=== PATIENT | male | born 1995 | race American Indian/Alaskan Native ===

== ENCOUNTER 2020-11-16 20:19 | Emergency (ER) | payer SELFPAY ==
[2020-11-16] MEDS ORDERED: IBUPROFEN 600 MG TAB PO ONE (21:00)
[2020-11-16] MEDS ORDERED: HYDROcodone/ACETAMINOPHEN 7.5-325MG TAB PO ONE (21:00)
[2020-11-16] MEDS ORDERED: ONDANSETRON 4 MG ODT TAB PO ONE (21:00)
--- NOTE | 2020-11-16 21:39 | XRay Report ---
EXAMINATION: Right ankle radiograph, 3 views, 11/16/2020 CLINICAL INFORMATION: Fall. Pain. COMPARISON: None. FINDINGS: There is no evidence of acute fracture or dislocation of the right ankle. No focal soft tis sophia swelling is identified. Signer Name: Samantha Merino MD Signed: 11/16/2020 9:35 PM Workstation Name: [id number]
--- NOTE | 2020-11-16 21:40 | XRay Report ---
EXAMINATION: Right foot radiograph, 3 views, 11/16/2020 CLINICAL INFORMATION: Right foot pain. Trauma. COMPARISON: None. FINDINGS: There is no evidence of acute fracture or focal soft tissue swelling of the right foot. Signer Name: Samantha Merino MD Signed: 11/16/2020 9:36 PM Workstation Name: [id number]
--- NOTE | 2020-11-16 23:02 | Emergency Department Report ---
ED Lower Extremity HPI - General Chief Complaint: Extremity Injury, Lower Stated Complaint: LEFT LEG PAIN/POSS BROKEN Source: patient Mode of arrival: Ambulatory Limitations: Physical Limitation - History of Present Illness Initial Comments: Patient is a 25-year-old -Citizen Of The [place] male with no past medical history presents to the ED with complaint of acute onset persistent severe right ankle and foot pain after he slipped and fell down while playing basketball about 6 hours ago. Patient states that the pain has been persistent and constant since the incident occurred and that he is unable to bear weight on the right foot because of severe pain. Patient denies head or neck injuries, dizziness, syncope, nausea, vomiting, chest pain, shortness of breath, back pain, hip pain, loss of consciousness, numbness and tingling or weakness of lower extremities bilaterally. MD Complaint: ankle injury (right ), foot injury (right) -: Sudden, hour(s) (6) Injury: Ankle: Right (pain), Foot: Right (pain) Type of Injury: blunt Place: home Severity: severe Severity scale (0 -10): 8 Worsens With: weight bearing, movement, palpation Context: fall, direct blow Associated Symptoms: snap/pop sensation, swelling, able to partially bear weight. denies: numbness, tingling, unable to bear weight - Related Data Previous Rx's Medication Instructions Recorded Last Taken Type Baclofen 20 mg PO Q8H PRN #15 tablet 11/16/20 Unknown Rx Ibuprofen [Motrin] 800 mg PO Q8HR PRN #30 tablet 11/16/20 Unknown Rx traMADoL [Ultram] 50 mg PO Q6HR PRN #10 tablet 11/16/20 Unknown Rx ED Review of Systems ROS: Stated complaint: LEFT LEG PAIN/POSS BROKEN Other details as noted in HPI Constitutional: denies: chills, fever Eyes: denies: eye pain, eye discharge, vision change ENT: denies: ear pain, throat pain Respiratory: denies: cough, shortness of breath, wheezing Cardiovascular: denies: chest pain, palpitations Endocrine: no symptoms reported Gastrointestinal: denies: abdominal pain, nausea, diarrhea Genitourinary: denies: urgency, dysuria Musculoskeletal: joint swelling (Right ankle mild swelling), arthralgia (Right ankle and foot pain). denies: back pain Skin: denies: rash, lesions Neurological: denies: headache, weakness, paresthesias Psychiatric: denies: anxiety, depression Hematological/Lymphatic: denies: easy bleeding, easy bruising ED Past Medical Hx - Social History Smoking Status: Never Smoker Substance Use Type: Alcohol, Marijuana - Medications Home Medications: Home Medications Medication Instructions Recorded Confirmed Last Taken Type Baclofen 20 mg PO Q8H PRN #15 tablet 11/16/20 Unknown Rx Ibuprofen [Motrin] 800 mg PO Q8HR PRN #30 tablet 11/16/20 Unknown Rx traMADoL [Ultram] 50 mg PO Q6HR PRN #10 tablet 11/16/20 Unknown Rx ED Physical Exam - General Limitations: Physical Limitation General appearance: alert, in no apparent distress - Head Head exam: Present: atraumatic, normocephalic, normal inspection - Eye Eye exam: Present: normal appearance, PERRL, EOMI Pupils: Present: normal accommodation - ENT ENT exam: Present: normal exam, normal orophraynx, mucous membranes moist, TM's normal bilaterally, normal external ear exam - Neck Neck exam: Present: normal inspection, full ROM - Respiratory Respiratory exam: Present: normal lung sounds bilaterally. Absent: respiratory distress, wheezes, chest wall tenderness, accessory muscle use, decreased breath sounds, prolonged expiratory - Cardiovascular Cardiovascular Exam: Present: regular rate, normal rhythm, normal heart sounds. Absent: systolic murmur, diastolic murmur, rubs, gallop - GI/Abdominal GI/Abdominal exam: Present: soft, normal bowel sounds. Absent: tenderness, guarding, rebound, hyperactive bowel sounds, hypoactive bowel sounds, organomegaly - Extremities Exam Extremities exam: Present: normal inspection, tenderness (Palpable severe right ankle and foot tenderness with mild swelling), normal capillary refill, joint swelling (Mild swelling of right foot and ankle). Absent: full ROM (Limited range of motion of right ankle and foot due to pain), calf tenderness - Back Exam Back exam: Present: normal inspection, full ROM. Absent: tenderness, CVA tenderness (R), CVA tenderness (L), muscle spasm, paraspinal tenderness, vertebral tenderness - Neurological Exam Neurological exam: Present: alert, oriented X3, CN II-XII intact, normal gait, reflexes normal - Psychiatric Psychiatric exam: Present: normal affect, normal mood - Skin Skin exam: Present: warm, dry, intact, normal color. Absent: rash ED Lower Extremity MDM - Radiology Data Radiology results: report reviewed, image reviewed Right ankle x-ray shows no acute fractures or subluxations. Right foot x-ray shows no acute fractures or subluxations - Medical Decision Making This is a 25-year-old -Citizen Of [place] male with no past medical history presents to the ED with complaint of acute onset persistent severe right ankle and foot pain after he slipped and fell down while playing basketball about 6 hours ago. Patient states that the pain has been persistent and constant since the incident occurred and that he is unable to bear weight on the right foot because of severe pain. In the ED, patient is alert and oriented x3 and is not in distress. Patient was treated for pain in the ED with pain medications. On reevaluation, patient's pain is well controlled medication. Right ankle x-ray shows no acute fractures or subluxation. Right foot x-ray also shows no acute fractures and subluxations. Patient was therefore discharged home on pain medications and advised to follow-up with his primary care physician in 5 to 7 days for reevaluation or return to the ED immediately if symptoms get worse. - Differential Diagnosis Ankle fracture; foot fracture; muscle strain; ankle sprain; Critical care attestation.: If time is entered above; I have spent that time in minutes in the direct care of this critically ill patient, excluding procedure time. ED Disposition Clinical Impression: Severe sprain of right ankle Qualifiers: Encounter type: initial encounter Qualified Code(s): S93.401A - Sprain of unspecified ligament of right ankle, initial encounter Sprain of right foot Qualifiers: Encounter type: initial encounter Qualified Code(s): S93.601A - Unspecified sprain of right foot, initial encounter Disposition: DC-01 TO HOME OR SELFCARE Is pt being admited?: No Does the pt Need Aspirin: No Condition: Stable Instructions: Ankle Sprain, [id number], Foot Sprain Additional Instructions: The right ankle and foot x-rays showed no acute fractures or subluxations. Your injuries are due to severe right ankle and foot sprain. Therefore take medication with food, drink plenty of fluids and follow-up with your primary care physician in 5 to 7 days for reevaluation. Return to the ED immediately if symptoms get worse. Prescriptions: Baclofen 20 mg PO Q8H PRN #15 tablet PRN Reason: Muscle Spasm Ibuprofen [Motrin] 800 mg PO Q8HR PRN #30 tablet PRN Reason: Pain , Severe (7-10) traMADoL [Ultram] 50 mg PO Q6HR PRN #10 tablet PRN Reason: Pain Referrals: [facility] [Provider Group] - 7-10 days Time of Disposition: 23:00 Print Language: WELSH
== END 2020-11-16 23:18 | disposition home or self-care (01) ==
LOC: ED 20:19
DX: S93.401A Sprain of unspecified ligament of right ankle, initial encounter (principal); S93.601A Unspecified sprain of right foot, initial encounter; F12.90 Cannabis use, unspecified, uncomplicated; Z79.899 Other long term (current) drug therapy; W18.39XA Other fall on same level, initial encounter; Y93.67 Activity, basketball; Y92.009 Unspecified place in unspecified non-institutional (private) residence as the place of occurrence of the external cause; Y99.8 Other external cause status
CPT/HCPCS: 99283; Q0162